=== PATIENT | male | born 1980 | race Caucasian/White ===

== ENCOUNTER 2018-03-31 13:05 | Emergency (ER) | payer OTHER ==
--- NOTE | 2018-03-31 13:22 | EDPHY ---
H & P Time Seen by Provider: 03/31/18 13:13 HPI/ROS: HPI Left shoulder dislocation. 37-year-old male by private vehicle with his daughter. 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 He reports that he use to be able to self reduce it but the last few times it has dislocated he has not been able to do this. He reports that he threw something behind him swelling in his left arm posteriorly and laterally and dislocated the left shoulder. He is right-hand dominant. He denies any other complaint or injury. ROS: Constitutional: No fever, no chills. No weakness. Musculoskeletal: As above. No other extremity pain. Skin: No lacerations or abrasions. Neurological: No focal weakness or altered sensation. Past medical history: As above. Social history: Nonsmoker. No alcohol. Here with his daughter. Physical Exam: General Appearance: Alert, no distress. This patient is responding to questions appropriately and in full sentences. This patient appears well- hydrated and well-nourished. Eyes: Pupils equal and round no pallor or injection. No lid edema, erythema or injection. Left shoulder and upper extremity exam: Significant for and anterior, inferior glenohumeral joint deformity. The axillary nerve distribution is intact. The left upper extremity is neurovascularly intact. No pain over the AC joint. Neurological: Motor sensory function is grossly intact. Cranial nerves are normal. Gait is normal. Skin: Warm and dry, no rashes. Lacerations or abrasions. Extremities are symmetrical except noted. All joints range without pain or impingement except noted. Psychiatric: No agitation. No depression. Database: EKG: Imaging: Procedures: Procedure: Dislocation reduction of left shoulder. The shoulder was reduced in the usual fashion without complications. Post reduction the patient's neurovascular exam is normal. Post reduction x-ray demonstrates reduction of the joint to the anatomic position. The procedure was performed by myself. Emergency department course: Triage vital signs reviewed. The patient was noted to be hypertensive. Vital signs otherwise normal. His primary care physician is aware of his elevated blood pressure. He was instructed to follow up with his primary care physician regarding his hypertension. Reduction of left shoulder as above. The patient was given 600 mg of ibuprofen. No sedation or narcotic pain medication given. Patient declines post reduction x-rays. On re-evaluation, feels comfortable going home. He declines any pain medication. The left upper extremity was placed in a sling. The left upper extremity is neurovascularly intact. I discussed follow-up with Orthopedics for re-evaluation and rehabilitation. Return to emergency department precautions reviewed. All of his questions were answered. He was discharged in good condition. Differential Diagnosis: The differential diagnosis on this patient includes but is not limited to left glenohumeral joint dislocation. Proximal humerus fracture, AC joint injury, significant neurovascular injury unlikely. This represents a partial list of diagnoses considered. These considerations are based on history, physical exam , past history, reassessment and diagnostic testing. Smoking Status: Never smoked Constitutional: Initial Vital Signs Temperature (C) 36.7 C 03/31/18 13:11 Heart Rate 85 03/31/18 13:11 Respiratory Rate 16 03/31/18 13:11 Blood Pressure 183/132 H 03/31/18 13:11 O2 Sat (%) 95 03/31/18 13:11 O2 Delivery Mode Room Air Allergies/Adverse Reactions: No Known Allergies Allergy (Verified 03/31/18 13:10) Home Medications: Medication Instructions Recorded No Medications [NO HOME 1 ea [facility] [place]/01[place]11 MEDICATIONS] Medical Decision Making - Data Points Medications Given: Discontinued Medications Ibuprofen (Motrin) 600 mg PO EDNOW ONE Stop: 03/31/18 13:26 Last Admin: 03/31/18 13:33 Dose: 600 mg Departure - Departure Disposition: Home, Routine, Self-Care Clinical Impression: Dislocation of left shoulder joint Condition: Good Instructions: Shoulder Dislocation (ED) Additional Instructions: Read and follow provided instructions. Follow-up with Orthopedics in 2-3 days for re-evaluation and physical therapy. Ibuprofen dosin mg every 6 hours with meals for the next 3 days only. Take only as needed for pain. Return to the emergency department for worsening pain, loss of sensation or weakness in her left arm, discoloration or other serious concerns. Referrals: Adelfo Vicente MD [Medical Doctor] - As per Instructions
[2018-03-31] MEDS ORDERED: IBUPROFEN 200 MG TAB PO ONE (13:25)
[2018-03-31 13:32] VITALS: BP 182/118
== END 2018-03-31 13:40 | disposition home or self-care (01) ==
LOC: CED 13:05
PROC: 0RSKXZZ Reposition Left Shoulder Joint, External Approach (ICD-10-PCS; principal; 2018-03-31)
DX: M24.412 Recurrent dislocation, left shoulder (principal); I10 Essential (primary) hypertension
CPT/HCPCS: A4565